=== PATIENT | female | born 1960 | race Caucasian/White ===

== ENCOUNTER 2019-10-22 14:36 | Outpatient (CLI) | payer BC ==
--- NOTE | 2019-10-29 13:37 | Mammography Report ---
Reason: ROUTINE MAMMO Procedure Date: 10/22/2019 Accession Number: [id number] / [id number] Procedure: MGN - Screening Mammo Dig Bilat CPT Code: Final Report FULL RESULT: EXAM: Screening Mammo Dig Bilat DATE: 10/22/2019 2:54 PM CLINICAL HISTORY: The patient is an asymptomatic 59-year-old female presenting for screening mammography. No reported personal nor family history of breast cancer. TECHNIQUE: (B) - Bilateral CC and MLO views were obtained. COMPARISON: None available. PARENCHYMAL PATTERN: (A) - The breasts demonstrate scattered fibroglandular densities bilaterally. FINDINGS: RIGHT BREAST: There is an isodense nodule in the upper outer middle position. Recommend targeted diagnostic evaluation in the absence of comparison views to confirm stability. LEFT BREAST: There are no suspicious masses, calcifications, or areas of distortion. IMPRESSION: RIGHT BREAST: Incomplete examination. BI-RADS Category 0. LEFT BREAST: Negative examination. BI-RADS category 1. RECOMMENDATION: ( Recommend targeted 3-D mammographic views and ultrasound of the right breast.. BI-RADS CATEGORY: (0) - Incomplete Examination - need additional evaluation. STANDARD QUALIFYING STATEMENTS: 1. This examination was not reviewed with the aid of Computer-Aided Detection (CAD). 2. A negative or benign imaging report should not preclude biopsy if clinically suspicious findings are present. 3. Dense breasts may obscure an underlying neoplasm.
== END 2019-10-22 14:37 | disposition home or self-care (01) ==
LOC: DI.N 14:36
PROVIDERS: ATTEND Family Medicine
DX: Z12.31 Encounter for screening mammogram for malignant neoplasm of breast (principal); R92.8 Other abnormal and inconclusive findings on diagnostic imaging of breast
CPT/HCPCS: 77067

== ENCOUNTER 2019-11-06 15:41 | Outpatient (CLI) | payer BC ==
[2019-11-06] MEDS ORDERED: IOVERSOL 320 100 ML VIAL IVP ONE (16:16)
--- NOTE | 2019-11-07 07:39 | CT Report ---
Reason: RT FACIAL MASS - SUBCUTANOUS PALPABLE MASS Procedure Date: 11/06/2019 Accession Number: [id number] / [id number] Procedure: CT - MAXILLOFACIAL W CPT Code: Final Report FULL RESULT: EXAM: CT MAXILLOFACIAL WITH CONTRAST EXAM DATE: 11/06/2019 04:42 PM. CLINICAL HISTORY: Palpable right facial mass. COMPARISONS: None. TECHNIQUE: Thin-section axial images were acquired of the face after administration of intravenous contrast. Post-processing: Coronal and sagittal reformats. Other: None. IV contrast: 90 mL Optiray 320. In accordance with CT protocol optimization, one or more of the following dose reduction techniques were utilized for this exam: automated exposure control, adjustment of mA and/or KV based on patient size, or use of iterative reconstructive technique. FINDINGS: Corresponding to the right facial skin marker where symptoms are present there is a small ovoid region of increased attenuation extending from the level of the right maxillary alveolus anteriorly into the subcutaneous fat. This localized nodule measures about 9 mm in diameter. The deep aspect of this lesion is contiguous with a more broad-based and amorphous area of abnormal increased soft tissue density along the anterior margin of the right maxillary alveolus. This is contiguous with a focus of maxillary dental decay where there is a prominent periapical dental lucency. The deeper amorphous abnormal asymmetric soft tissue contiguous with the focus of dental disease measures about 1 x 2 cm in width. This may represent infectious/inflammatory phlegmon and/or edema secondary to dental disease and possible infection of the adjacent soft tissues including potentially the gingiva and adjacent cheek medially adjacent to the base of the nose on the right. There is no evidence for peripherally enhancing loculated abscess-like fluid collection, however. More generalized swelling and edema extending away from this location, however, is not clearly demonstrated to suggest a more generalized regional cellulitis. Additional dental decay is suggested also more posteriorly in the right maxilla and likely also in the mandible though this CT should not substitute for dedicated dental imaging. Mild to moderate multilobulated mucosal thickening in the right maxillary sinus is present inferiorly. No air-fluid level. Negligible additional paranasal sinus opacity. Clear mastoids. Unremarkable orbits. No focal intracranial lesion identified. Partially visualized internal jugular veins contrast opacify as expected. No focal or acute lesion of the visualized pharynx. Unremarkable appearance of the parotid and submandibular salivary glands. IMPRESSION: 1. The right cheek skin marker corresponds to a focus of abnormal soft tissue density projecting into the adjacent subcutaneous tissues which is contiguous with a deeper region of abnormal increased soft tissue attenuation contiguous with what appears to be right maxillary dental decay, this is likely an infectious/inflammatory process. Neoplasm is less likely. No evidence for drainable abscess. 2. Additional multifocal dental decay. 3. Maxillary sinus mucosal thickening is present, particularly on the right. RADIA
== END 2019-11-06 15:42 | disposition home or self-care (01) ==
LOC: DI 15:41
PROVIDERS: ATTEND Family Medicine
DX: J34.89 Other specified disorders of nose and nasal sinuses (principal); K02.9 Dental caries, unspecified; R22.0 Localized swelling, mass and lump, head
CPT/HCPCS: 70487; Q9967

== ENCOUNTER 2019-12-04 08:22 | Outpatient (CLI) | payer BC, OTHER ==
--- NOTE | 2019-12-04 09:55 | Ultrasound Report ---
Reason: RIGHT BREAST NODULE Procedure Date: 12/04/2019 Accession Number: [id number] / [id number] Procedure: US - Breast Unilateral Limited CPT Code: Final Report FULL RESULT: EXAM: Diag Special Views Dig RT, Breast Unilateral Limited DATE: 12/04/2019 9:01 AM CLINICAL HISTORY: The patient is an asymptomatic 59-year-old female recalled from screening mammogram (10/22/2019) for diagnostic evaluation of the right breast. MAMMOGRAM TECHNIQUE: (R) - Right diagnostic views. COMPARISON: 10/22/2019 and 02/22/2009 PARENCHYMAL PATTERN: Scattered fibroglandular tissue. MAMMOGRAM FINDINGS: A lobulated circumscribed isodense mass in the 11:00 posterior position confirmed on targeted diagnostic imaging. The remainder of the breast is unremarkable. ULTRASOUND TECHNIQUE: A high frequency transducer was utilized to evaluate the area of concern in the upper outer posterior position. [employer] Technologist static images obtained ULTRASOUND FINDINGS: There is a lobulated avascular complicated cyst in the 11:00 axis 8 cm from the nipple measuring approximately 8 x 4 x 6 mm. This corresponds to the mammographic finding. No definite solid mass, hyperemia or distortion. No sonographically suspicious features. Recommend 6 month follow-up targeted ultrasound. IMPRESSION: Probably Benign. BI-RADS category 3. RECOMMENDATION: Recommend 6 month follow-up targeted ultrasound to confirm stability or interval resolution. BI-RADS CATEGORY: (3) - Probably Benign. STANDARD QUALIFYING STATEMENTS: A negative or benign imaging report should not preclude biopsy if clinically suspicious findings are present. Dense breasts may obscure an underlying neoplasm. This examination was reviewed with the aid of 3D breast imaging (tomosynthesis).
== END 2019-12-04 08:23 | disposition home or self-care (01) ==
LOC: DI 08:22
PROVIDERS: ATTEND Family Medicine
DX: N60.01 Solitary cyst of right breast (principal)
CPT/HCPCS: 76642